=== PATIENT | female | born 1985 | race Caucasian/White ===

== ENCOUNTER 2016-11-01 09:18 | Emergency (ER) | payer SELFPAY ==
[2016-11-01 09:27] VITALS: BP 140/95; PULSE 122; TEMP 98.5; BMI 22.3
--- NOTE | 2016-11-01 09:33 | EDPRACDOC ---
- General Information Chief Complaint: Flu-Like Symptoms Stated Complaint: FLU LIKE SYMPTOMS Time Seen by Provider: 11/01/16 09:28 Mode Of Arrival: Car Home Medications: Home Medications Ibuprofen 600 mg PO TID #20 tablet 03/31/16 Guaifenesin-Codeine [Robitussin AC] 10 ml PO Q6-8H 5 Days 11/01/16 Oseltamivir Phosphate [Tamiflu] 75 mg PO BID #10 capsule 11/01/16 Allergies/Adverse Reactions: Allergies Allergy/AdvReac Type Severity Reaction Status Date / Time Penicillins Allergy Mild Unknown/See Verified 03/31/16 14:15 Comments ketorolac tromethamine Allergy Unknown Itching Verified 03/31/16 14:15 [From Toradol] - History of Present Illness Symptoms Started: 3 DAYS Symptoms: Reports: Cough, Nasal Symptoms, Sore Throat, Myalgia Recent Medications: Reports: None Relevant History Of: Reports: None Shortness of Breath: None Cough Description: Reports: Non-productive Associated Signs and Symptoms: Reports: Cough, Nasal Symptoms, Myalgia. Denies : Pain with head movement ED Past Medical History - History Reviewed Yes Nurses notes reviewed and agree except as marked - Patient Medical History Neurological History: Denies: Cerebrovascular Accident, Seizures, Dementia Cardiac History: Denies: Coronary Artery Disease, Atrial Fibrillation, Hypertension, Congestive Heart Failure, Heart Attack, Hypercholesterolemia, Internal Defibrillator, Pacemaker Respiratory History: Denies: Asthma, COPD, Bronchitis, Asbestosis, Aspiration Pneumonia, Cough, Chronic Bronchitis, Pneumonia GI/ History: Denies: Urinary Tract Infection, Kidney Stones, Liver Failure, Gastroesophageal Reflux, Ulcer Musculoskeletal History: Denies: Arthritis Psychological History: Denies: Depression, Anxiety, Schizophrenia Systemic History: Denies: Cancer, Anemia, Diabetes, Hyperthyroidism, Hypothyroidism, HIV Surgical History: Reports: Other () - Social Medical History Smoking Status: Heavy tobacco smoker (5 or more cigarettes/day or daily pipe/ cigar) EDM Review of Systems - Review of Systems ROS Negative Except as Marked: Yes All systems reviewed and were negative except as marked - Physical Exam Constitutional: Alert (Awake), No apparent distress Oriented to: Time, Person, Place Last recorded Vital Signs: Last Vital Signs Temp 98.5 F 11/01/16 09:24 Pulse 122 H 11/01/16 09:24 Resp 18 11/01/16 09:24 BP 140/95 11/01/16 09:24 Pulse Ox 98 11/01/16 09:24 Oxygen Pulse Oxygen Saturation 98 O2 Device Room Air Oxygen Flow Rate Fraction of Inspired Oxygen ( FIO2) - HEENT Head: Normal ( normocephalic) Eye Exam: Normal (PERRL, EOMI, Sclera white) Oropharynx: Red ENT EAC: Normal TMJ: Normal Nose: No Symptoms Reported (septum midline) Neck: Normal (FROM, trachea at midline). negative: Meningeal Signs - Respiratory/Cardiovascular Respiratory: Normal - CTA (BBS clear to auscultation without adventitious sounds ) Cardiovascular: Tachycardia - GI Auscultation: Normal (NABS) Palpation: Normal (Soft,No rebound or guarding, non distended) Tenderness: Non tender Dominguez's Sign: Negative - Musculoskeletal Back: Normal (Non-Tender) Extremities: Normal (Normal tone, Pulses 2+ No cyanosis or edema, FROM) - Integumentary Skin: Normal, Warm, Dry Lymphatics: Normal (no adenopathy) - Neurologic Memory Impaired: Normal Motor Function: Normal (Normal tone, Pulses 2+ No cyanosis or edema, FROM) Cranial Nerve: Normal (CN II-X11 intact sensation, strength 5/5) Cerebellar: Normal Mood Description: Normal Perception: Normal - Departure Yes I personally saw and evaluated the patient. Disposition: Home Condition: Good Final Diagnosis: Influenza Instructions: Influenza (ED) Education/Counseling Given To: Patient Education/Counseling Given Regarding: Diagnosis, Treatment, Prognosis Referrals: None,No Provider [Primary Care Provider] - One Week Jake Moralez MD [Staff Physician] - One Week Prescriptions: New Guaifenesin-Codeine [Robitussin AC] 10 ml PO Q6-8H 5 Days Oseltamivir Phosphate [Tamiflu] 75 mg PO BID #10 capsule No Action Ibuprofen 600 mg PO TID #20 tablet
== END 2016-11-01 09:53 | disposition home or self-care (01) ==
LOC: ED 09:18
DX: J11.1 Influenza due to unidentified influenza virus with other respiratory manifestations (principal)
CPT/HCPCS: 99283